=== PATIENT | female | born 1965 | race Caucasian/White ===

== ENCOUNTER 2017-02-06 22:49 | Emergency (ER) | payer MEDICAID ==
[~2017-02-06] VITALS: Ht 154.9 cm; Wt 61.2 kg
[2017-02-06 22:56] VITALS: BP 148/78; PULSE 83; RESP 17; TEMP 98.2; O2SAT 100
--- NOTE | 2017-02-06 22:56 | NUR ---
Patient triaged and placed in waiting room. VSS and patient appears in no acute distress at this time. Accompanied by family, awaiting available bed, and MD notified of need for MSE.
--- NOTE | 2017-02-06 23:05 | NUR ---
Patient to ER C/O skin irritation with pruritus, states "i thing its scabies" Also C/O cough with fever on and off, sore throat, white patches back of throat. AAOx4, unlabored breathing, no signs of acute distress.
--- NOTE | 2017-02-06 23:19 | NUR ---
ER MD Boothe evaluated patient in triage room
[2017-02-06 23:56] VITALS: BP 131/72; PULSE 81; RESP 17; TEMP 97.9; O2SAT 97
--- NOTE | 2017-02-06 23:56 | NUR ---
Patient given written and verbal discharge instructions and verbalizes understanding. ER MD Boothe discussed with patient the results and treatment provided. Patient in stable condition. ID arm band removed. Rx of motrin given. Patient educated on pain management and to follow up with PMD. Pain Scale 0/10. Opportunity for questions provided and answered.
== END 2017-02-06 23:56 | disposition home or self-care (01) ==
LOC: SED 22:49
DX: J06.9 Acute upper respiratory infection, unspecified (principal); Z88.5 Allergy status to narcotic agent; Z91.02 Food additives allergy status
CPT/HCPCS: 99282

== ENCOUNTER 2017-08-17 17:51 | Emergency (ER) | payer MEDICAID, OTHER ==
[~2017-08-17] VITALS: Ht 154.9 cm; Wt 68.0 kg
[2017-08-17 18:02] VITALS: BP_SYST 139
[2017-08-17 18:59] LABS: BILIRUBIN,URINE NEGATIVE (NEGATIVE); BLOOD, URINE NEGATIVE (NEGATIVE); CLARITY/URINE CLEAR (CLEAR); COLOR,URINE YELLOW (YELLOW); GLUCOSE,URINE NEGATIVE (NEGATIVE); KETONES,URINE NEGATIVE (NEGATIVE); LEUKOCYTE ESTERASE ,URINE NEGATIVE (NEGATIVE); NITRITE, URINE NEGATIVE (NEGATIVE); PROTEIN URINE NEGATIVE (NEGATIVE); UROBILINOGEN,URINE 0.2 (0.2-1.0)
[2017-08-17 19:58] VITALS: BP_SYST 139
== END 2017-08-17 19:58 | disposition home or self-care (01) ==
LOC: SED 17:51
DX: N76.0 Acute vaginitis (principal); B86 Scabies; R03.0 Elevated blood-pressure reading, without diagnosis of hypertension; M06.9 Rheumatoid arthritis, unspecified; F17.210 Nicotine dependence, cigarettes, uncomplicated; Z86.73 Personal history of transient ischemic attack (TIA), and cerebral infarction without residual deficits; Z90.49 Acquired absence of other specified parts of digestive tract; Z98.51 Tubal ligation status; Z71.6 Tobacco abuse counseling; Z88.5 Allergy status to narcotic agent; Z91.041 Radiographic dye allergy status
CPT/HCPCS: 81003; 99283